=== PATIENT | male | born 1985 | race Caucasian/White ===

== ENCOUNTER 2025-08-15 20:58 | Emergency (ER) | payer SELFPAY ==
[~2025-08-15] VITALS: Ht 175.3 cm; Wt 81.0 kg
[2025-08-15 21:02] VITALS: O2SAT 98
[2025-08-15] MEDS: SODIUM CHLORIDE 0.9% 1,000 ML IV ONE (22:46)
[2025-08-15 22:50] VITALS: TEMP 36.8
[2025-08-15 23:00] LABS: BASOPHILS % 1.0 % (0.0-2.0); EOSINOPHILS % 0.4 % (0.0-5.0); HEMATOCRIT. 50.5 % (42.0-52.0); HEMOGLOBIN. 17.4 g/dL (14.0-18.0); LYMPHOCYTES % 22.9 % (20.0-50.0); MEAN PLATELET VOLUME 7.2 fl (7.4-10.4); MONOCYTES % 8.1 % (2.0-8.0); NEUTROPHILS % 67.6 % (40.0-76.0); PLATELET 265 x1000/uL (130-400); RED BLOOD CELL COUNT 5.38 mill/uL (4.7-6.1); RED CELL DISTRIBUTION WIDTH 14.6 % (11.6-14.6)
[2025-08-15 23:22] LABS: CREATININE 1.1 mg/dL (0.6-1.3); UREA NITROGEN BLOOD < 5 mg/dL (9-23)
[2025-08-15 23:56] LABS: ETHANOL BLOOD 361 mg/dL (<10)
[2025-08-16 05:10] VITALS: BP 136/89; PULSE 88; RESP 16; O2SAT 99
== END 2025-08-16 05:14 | disposition home or self-care (01) ==
LOC: ER 20:58
DX: F10.129 Alcohol abuse with intoxication, unspecified (principal); E86.0 Dehydration; Y90.8 Blood alcohol level of 240 mg/100 ml or more
CPT/HCPCS: 80048; 80320; 85025; 36415; 96360; 96361; 99283; J7030; G0480